=== PATIENT | female | born 1995 ===

== ENCOUNTER 2024-04-06 08:15 | Inpatient (IN) | payer OTHER ==
[~2024-04-06] VITALS: Ht 162.6 cm; Wt 100.2 kg
[2024-04-06 09:13] LABS: HEMATOCRIT 36.6 % (36.0-45.00); HEMOGLOBIN 12.3 g/dL (12.0-15.00); MEAN CORPUSCULAR HEMOGLOBIN 27.2 pg (27.00-32.0); MEAN CORPUSCULAR HGB CONC 33.6 g/dl (32.0-36.0); PLATELET COUNT 200 K/uL (150-450); RED BLOOD COUNT 4.52 M/uL (4.00-6.00); RED CELL DISTRIBUTION WIDTH 13.3 % (11.5-14.5)
[2024-04-06 09:46] LABS: INR 1.02; PARTIAL THROMBOPLASTIN TIME 31.4 SECONDS (22.0-34.0); PROTHROMBIN TIME 11.1 SECONDS (9.0-11.5)
[2024-04-06 10:20] LABS: URINE APPEARANCE Clear; URINE BILIRRUBIN Negative (NEGATIVE); URINE BLOOD Negative; URINE COLOR Yellow; URINE GLUCOSE Negative (NEGATIVE); URINE KETONE Trace (NEGATIVE); URINE LEUKOCYTE Trace; URINE NITRATE Negative; URINE PROTEIN 30 (NEGATIVE); URINE UROBILINOGEN 0.2 E.U./dl
[2024-04-06 10:22] LABS: ALBUMIN 3.6 gm/dL (3.4-5.0); BILIRUBIN TOTAL 0.38 mg/dL (0.3-1.2); CREATININE SERUM 0.64 mg/dL (0.55-1.02); GFR 109.71; GLOBULINA 3.5 G/DL (2.4-3.5); POTASSIUM 4.32 mEq/L (3.5-5.1); TOTAL PROTEIN 7.1 gm/dL (6.4-8.2)
[2024-04-06 10:26] VITALS: BP 127/84
[2024-04-06] MEDS ORDERED: WELLBUTRIN SR150 MG PO (10:26)
[2024-04-06 10:31] LABS: URINE BACTERIA 385.5 uL (0.0-1933); URINE EPITHELIAL CELLS 24.2 uL (0.0-38.8); URINE RBC 4.4 uL (0.0-20.8); URINE WBC 16.3 uL (0.0-23.2)
[2024-04-06 10:40] LABS: URINE CAST 0.15 uL (0.0-1.40)
[2024-04-12] MEDS ORDERED: DEXAMETHASONE SODIUM PHOSP/PF 10 MG/ML VIAL IV ONE (08:15)
[2024-04-12] MEDS ORDERED: CEFAZOLIN SODIUM 1,000 MG VIAL IV ONE (08:15)
[2024-04-12] MEDS ORDERED: Calcium Carbonate 1 TAB TABLET PO SCH ×2 (09:41→17:00)
[2024-04-12] MEDS ORDERED: TRAMADOL HCL 50 MG TABLET PO SCH (09:42)
[2024-04-12] MEDS ORDERED: ACETAMINOPHEN 500 MG GEL..CAP PO SCH (09:42)
[2024-04-12] MEDS ORDERED: RINGERS SOLUTION,LACTATED 1,000 ML IV SCH (09:45)
[2024-04-12] MEDS ORDERED: ONDANSETRON HCL 2 MG/ML VIAL IV PRN (09:45)
[2024-04-12] MEDS ORDERED: ENALAPRILAT DIHYDRATE 1.25 MG/ML VIAL IV PRN (09:45)
[2024-04-12] MEDS ORDERED: MEPERIDINE HCL 25 MG/ML AMPUL IV ONE (10:55)
[2024-04-12] MEDS ORDERED: MORPHINE SULFATE 4 MG/ML VIAL IV ONE ×2 (11:25→11:55)
[2024-04-12 13:45] VITALS: BP 119/69; O2SAT 98
[2024-04-12] MEDS ORDERED: CALCITRIOL 0.5 MCG CAPSULE PO SCH ×3 (14:23→17:00)
[2024-04-12 16:00] VITALS: BP 122/65; O2SAT 98
[2024-04-12] MEDS ORDERED: CYCLOBENZAPRINE HCL 5 MG TABLET PO SCH (17:00)
[2024-04-12] MEDS ORDERED: PANTOPRAZOLE SODIUM 40 MG/VIAL VIAL IV PUSH SCH (21:00)
[2024-04-12 23:10] VITALS: BP 99/56; O2SAT 100
[2024-04-13] MEDS ORDERED: LEVOTHYROXINE SODIUM 150 MCG TABLET PO SCH (06:00)
[2024-04-13 08:15] VITALS: BP 104/60; O2SAT 100
[2024-04-13] MEDS ORDERED: BUPROPION HCL 150 MG TABLET.SA PO SCH (09:00)
== END 2024-04-13 10:59 | disposition home or self-care (01) | DRG 627 ==
LOC: O/R 04-12 05:17 → SURH 04-12 07:00
PROVIDERS: ADMIT Surgery; ATTEND Surgery
PROC: 0GTK0ZZ Resection of Thyroid Gland, Open Approach (ICD-10-PCS; principal; 2024-04-12 07:00)
DX: E05.00 Thyrotoxicosis with diffuse goiter without thyrotoxic crisis or storm (principal); E06.3 Autoimmune thyroiditis; Z20.822 Contact with and (suspected) exposure to COVID-19